=== PATIENT | male | born 2000 | race Two or more races ===

== ENCOUNTER 2020-01-17 16:30 | Inpatient (IN) | payer OTHER ==
[~2020-01-17] VITALS: Ht 170.2 cm; Wt 67.0 kg
[2020-01-17 17:00] LABS: VENOUS BASE EXCESS 0.1 (-2.0-2.0); VENOUS HCO3 26.5 MEQ/L (23.0-27.0); VENOUS O2 SATURATION 67.9 % (60.0-80.0); VENOUS PARTIAL PRESSURE CO2 48.5 mmHg (38.0-50.0); VENOUS PARTIAL PRESSURE O2 36.6 mmHg (30.0-50.0); VENOUS PH 7.355 UNITS (7.330-7.430); VENOUS STANDARD HCO3 23.6 MEQ/L
[2020-01-17] MEDS ORDERED: ACETAMINOPHEN TAB 650MG DOSE (2X325MG) PO ONE (17:00)
[2020-01-17] MEDS ORDERED: dexameTHASONE 20MG/5ML VIAL (J1100 PER 1MG) IV ONE (17:00)
[2020-01-17] MEDS ORDERED: NS 500 ML IV ONE (17:00)
[2020-01-17 17:08] LABS: BASO # 0.1 10^3/uL (0.0-0.2); BASO % 0.3 % (0.0-1.0); EOS # 0.4 10^3/uL (0.0-0.5); HEMATOCRIT 50.5 % (42.0-52.0); HEMOGLOBIN 17.1 g/dl (13.5-17.5); LYMPH # 1.2 10^3/uL (1.5-5.0); LYMPH % 5.3 % (24.0-44.0); MEAN CORPUSCULAR HEMOGLOBIN 28.4 pg (27.0-33.0); MEAN CORPUSCULAR HGB CONC 33.9 g/dl (32.0-36.5); MEAN CORPUSCULAR VOLUME 83.7 fl (80.0-96.0); MONO # 1.3 10^3/uL (0.0-0.8); MONO % 5.6 % (0.0-5.0); NEUTROPHILS # 19.2 10^3/uL (1.5-8.5); NEUTROPHILS % 85.9 % (36.0-66.0); PLATELET COUNT, AUTOMATED 206 10^3/uL (150-450); RED BLOOD COUNT 6.03 10^6/uL (4.30-6.10); WHITE BLOOD COUNT 22.3 10^3/uL (4.0-10.0)
[2020-01-17 17:40] LABS: ALBUMIN 3.9 GM/DL (3.2-5.2); ALT/SGPT 37 U/L (12-78); BILIRUBIN,TOTAL 0.9 MG/DL (0.2-1.0); BLOOD UREA NITROGEN 25 MG/DL (7-18); CALCIUM LEVEL 9.1 MG/DL (8.5-10.1); CARBON DIOXIDE LEVEL 25 MEQ/L (21-32); CHLORIDE LEVEL 100 MEQ/L (98-107); CPK CREATINE PHOSPHOKINASE 410 U/L (39-308); GLUCOSE, FASTING 115 MG/DL (70-100); POTASSIUM SERUM 3.9 MEQ/L (3.5-5.1); SODIUM LEVEL 135 MEQ/L (136-145)
[2020-01-17] MEDS ORDERED: MOM 30ML SUSPENSION UDC PO PRN (20:00)
[2020-01-17] MEDS ORDERED: MAALOX 30 ML SUSP *UDC PO PRN (20:00)
[2020-01-17] MEDS ORDERED: ACETAMINOPHEN TAB 650MG DOSE (2X325MG) PO PRN (20:00)
[2020-01-17] MEDS ORDERED: SODIUM CHLORIDE 0.9% 1000ML IV SCH (20:00)
--- NOTE | 2020-01-17 20:05 | HPEPDOC ---
[facility] Medical History & Physical Date of Admission Jan 17, 2020 Date of Service: Jan 17, 2020 Other Provider [facility] Attending Physician: TIERRA BAER MD History and Physical TIME OF SERVICE: 920PM CHIEF COMPLAINT: not feeling well HISTORY OF PRESENT ILLNESS: This 19 yr old M presented with the chief c/o not feeling well for 3 days. He has had a dry cough, fevers, chills, shortness of breath, 5/10 in severity mid- chest pain that is worse when he coughs and body aches. He denies having n/v/d, runny nose, sore throat or having an sick contacts. As a result of the coughing his voice has become hoarse. He is in the and took a plane trip (via 3 different air crafts) from [place] to [place] about 2 weeks ago. His quaratine period was set to on Jan 17. He admits to not eating much for the last 3 days. REVIEW OF SYSTEMS: 12 point review of systems negative except as listed in HPI PAST MEDICAL/ SURGICAL HISTORY: none SOCIAL HISTORY: + Tobacco ( smokes and Vapes tobacco products, denied vaping other products such as THC /last vapped 1 month ago) - Alcohol - Recreational drugs FAMILY HISTORY: none ALLERGIES: Please see below. HOME MEDICATIONS: Please see below. PHYSICAL EXAMINATION: Vital Signs Date Time Temp Pulse Resp B/P (MAP) Pulse Ox O2 Delivery O2 Flow Rate FiO2 01/17/20 16:44 Nasal Cannula 4.0 01/17/20 16:44 100.2 123 18 129/81 93 GEN: well-nourished / well developed/ NAD INTEGUMENT: slightly flushed & diaphoretic HEENT: O2 sats occasionally dropping as low as 79% during exam despite 4L of O2 via NC / lips acyanotic /mucus membranes moist and pink / sclera anicteric/ NC in place CVS: tachycardic /NMRG/ radial pulses intact / no lower extremity edema LUNGS: able to speak full sentences without stopping to take a breath / coughing frequently / has dry inspiratory crackles at lung bases ABDOMEN: Contour (flat) MSK/EXTREMITIES: NCAT / range of motion intact in all 4 extremities NEURO: CN 2-12 are grossly intact / speech is not dysarthric PSYCH: alert and oriented to person place and time/ able to understand and follow all commands LABORATORY DATA: 01/17/20 16:50 Immature Granulocyte % (Auto) 0.9, Neutrophils (%) (Auto) 85.9H, Lymphocytes (%) (Auto) 5.3L, Monocytes (%) (Auto) 5.6H, Eosinophils (%) (Auto) 2.0, Basophils ( %) (Auto) 0.3, Neutrophils # (Auto) 19.2H, Lymphocytes # (Auto) 1.2L, Monocytes # (Auto) 1.3H, Eosinophils # (Auto) 0.4, Basophils # (Auto) 0.1, Nucleated Red Blood Cells % (auto) 0.0, Blood Gas Bicarbonate Standard 23.6, Venous Blood pH 7.355, Venous Blood Partial Pressure CO2 48.5, Venous Blood Partial Pressure O2 36.6, Venous Blood Total Carbon Dioxide 28.0, Venous Blood HCO3 26.5, Venous Blood Oxygen Saturation 67.9, Venous Blood Base Excess 0.1, Anion Gap 10, Lactic Acid Level 3.0*H, Calcium Level 9.1, Total Bilirubin 0.9, Aspartate Amino Transf (AST/SGOT) 16, Alanine Aminotransferase (ALT/SGPT) 37, Alkaline Phosphatase 81, Total Creatine Kinase 410H, Total Protein 8.0, Albumin 3.9, Albumin/Globulin Ratio 1.0 IMAGING: Chest xray (based on personal visualization): bilateral patchy hazy opacities that are more prominent and confluent on the right side of the lung MICROBIOLOGY: Respiratory panel: Blood cx pending.... NEGATIVE by MULTIPLEXED NUCLEIC ACID PCR RESPIRATORY PANEL Final SARS-CoV-2 (COVID 19) NEGATIVE - SARS-CoV-2 (COVID19) This respiratory PCR panel detects Influenza A H1, H3 and 2009 H1 viruses, Influenza B virus, Respiratory Syncytial Virus, Human metapneumovirus, Parainfluenza virus 1, 2, 3 and 4, Adenovirus, Rhinovirus/Enterovirus, Coronavi ariel HKU1, NL63, OC43, 229E and SARS-CoV-2 (COVID 19), Bordetella pertussis, Bordetella parapertussis, Mycoplasma pneumoniae and Chlamydia pneumoniae. ASSESSMENT: is a 19 yr old in the w a hx of vaping who travelled to [place] from [place] about 13 days ago; he presented w c/o of f/c, chest pain associated w coughing and myalgias and was found to have hypoxia & bilateral infiltrates despite a neg respiratory panel and COVID x2; he will be admitted for management of hypoxia and evaluation of sepsis, atypical PNA vs EVALI and HOWARD. PLAN: 1. Reactive SIRS vs Sepsis 2/2 atypical PNA ? -SIRS criteria: HR =125 / WBC =22.3 - his CRP elevated, he has non diabetic hyperglycemia and the lactic acid = 3 -NEW2S Score = 7 points = high risk Plan: admit to medical floor / telemetry / Sepsis protocol w repeat lactic / start IV Doxcyclin for atypical PNA (no azithro bc of high resistance rates in the community) / c/w IV /f/u blood cx & sputum Cx / Acetaminophen PRN for fever / target MAP at of least 65 to 70 / f/u Is and Os with target UOP of at least 0.5 ml/kg/H 2. Hypoxia and Bilateral Infiltrates Possibly 2/2 atypical PNA vs EVALI (e-cigarette or vaping associated lung injury which can also present w PNA like symptoms including constitutional symptoms) vs Organizing PNA vs Lipoid PNA vs Hypersensitivity Pneumonitis -During the exam he had hypoxia with drop in O2 sats as low as 79% despite use of 4L of supplemental O2 -COVID tests included with the respiratory panel and PCR were negative Plan: continuous pulse ox & supplemental O2/ f/u HIV, sputum cx, MRSA< strep pneumo, legionella, mycoplasma PNA, Chlamydia PNA & blood cx / Tessalon pearls / Acetaminophen PRN for fever / if his hypoxia persists and the work-up is neg, the day time team may consider HRCT of the chest + Pulm consult for BAL 3. Lactic Acidosis 2/2 dehydration and or infection Plan: trend lactic acid / IVF 4. HOWARD Likely pre-renal due to poor PO intake Cr 1.50 BUN 25 Plan: IVF / f/u ulytes for FENa & renal US 5. Mild Rhabdomyolysis -CPK 410 -[facility] Rhabdomyolysis Risk Score to predict the risk of severe HOWARD or mortality in patients with rhabdomyolysis = 1.5 points = low risk Plan: IVF / f/u drug screen / trend CPK DVT PROPHYLAXIS: SCDs DISPOSITION: home after more than 2 midnight's stay Home Medications No Active Prescriptions or Reported Meds Allergies Coded Allergies: No Known Allergies (Unverified , 01/17/20) A-FIB/CHADSVASC A-FIB History Current/History of A-Fib/PAF?: No Current PO Anticoag Therapy: No TIERRA BAER MD Jan 17, 2020 20:05
[2020-01-17 20:29] LABS: FERRITIN 214 NG/ML (26-388)
[2020-01-17 20:40] LABS: ERYTHROCYTE SEDIMENTATION RATE 22 mm/hr (0-15)
[2020-01-17 20:51] LABS: MAGNESIUM LEVEL 1.9 MG/DL (1.4-2.0)
[2020-01-17] MEDS: NS 1,000 ML IV SCH (22:23)
--- NOTE | 2020-01-17 22:57 | REPVR ---
PROCEDURE INFORMATION: Exam: US Retroperitoneal Limited, Kidneys Exam date and time: 01/17/2020 10:17 PM Age: 19 years old Clinical indication: Abnormal findings; Abnormal lab test; Abnormal kidney function lab tests; Additional info: Brennan TECHNIQUE: Imaging protocol: Real-time ultrasound of the retroperitoneum with image documentation. Examination was focused on the kidneys. COMPARISON: No relevant prior studies available. FINDINGS: Right kidney: The right kidney measures 11.5 cm in length by 4.2 cm in thickness and there is no hydronephrosis. There is mild increased echogenicity of the right and left renal cortex which can be seen with renal insufficiency. Left kidney: The left kidney measures 11.3 cm in length by 4.9 cm in thickness and there is no evidence of hydronephrosis. Bladder: Normal appearing urinary bladder. IMPRESSION: 1. No evidence of hydronephrosis. 2. Mild increased echogenicity of the renal cortex bilaterally. Electronically signed by: Torres Osuna On 01/17/2020 22:57:31 PM
[2020-01-18 00:37] VITALS: BP 118/73
[2020-01-18] MEDS: NS 1,000 ML IV SCH ×3 (01:23→22:16)
[2020-01-18 01:44] LABS: PHOSPHORUS LEVEL 3.5 MG/DL (2.5-4.9)
[2020-01-18] MEDS ORDERED: DOXYCYCLINE HYCLATE 100 MG in D5W MINI-BAG PLUS 100 ML IV SCH (02:00)
[2020-01-18 06:00] VITALS: BP 132/74
[2020-01-18 07:20] LABS: HEMATOCRIT 46.1 % (42.0-52.0); HEMOGLOBIN 15.5 g/dl (13.5-17.5); MEAN CORPUSCULAR HEMOGLOBIN 28.9 pg (27.0-33.0); MEAN CORPUSCULAR HGB CONC 33.6 g/dl (32.0-36.5); PLATELET COUNT, AUTOMATED 213 10^3/uL (150-450); RED BLOOD COUNT 5.36 10^6/uL (4.30-6.10); WHITE BLOOD COUNT 12.6 10^3/uL (4.0-10.0)
[2020-01-18 07:36] LABS: BLOOD UREA NITROGEN 24 MG/DL (7-18); CALCIUM LEVEL 8.8 MG/DL (8.5-10.1); CARBON DIOXIDE LEVEL 26 MEQ/L (21-32); CHLORIDE LEVEL 106 MEQ/L (98-107); CPK CREATINE PHOSPHOKINASE 298 U/L (39-308); CREATININE FOR GFR 1.13 MG/DL (0.70-1.30); GLUCOSE, FASTING 130 MG/DL (70-100); POTASSIUM SERUM 4.6 MEQ/L (3.5-5.1); SODIUM LEVEL 138 MEQ/L (136-145)
[2020-01-18 08:25] LABS: AMPHETAMINES LEVEL URINE NEGATIVE (NEGATIVE); BARBITURATES URINE NEGATIVE (NEGATIVE); BENZODIAZEPINES URINE NEGATIVE (NEGATIVE); CANNABINOIDS URINE NEGATIVE (NEGATIVE); COCAINE METABOLITE URINE NEGATIVE (NEGATIVE); METHADONE URINE NEGATIVE (NEGATIVE); OPIATES URINE NEGATIVE (NEGATIVE); PHENCYCLIDINE URINE NEGATIVE (NEGATIVE); TOTAL PROTEIN,RANDOM URINE 145.3 MG/DL (0.0-12.0)
[2020-01-18 08:56] LABS: OSMOLALITY URINE 913 MOSM/KG (500-800)
[2020-01-18] MEDS: ENOXAPARIN 40MG/0.4ML SYRINGE (J1650 PER 10MG) SC SCH (09:23)
[2020-01-18 09:30] VITALS: O2SAT 95
[2020-01-18 09:40] LABS: HIV 1&2 SCREEN CENTAUR NEGATIVE (NEGATIVE)
--- NOTE | 2020-01-18 13:52 | IPNPDOC ---
Text Note Date of Service The patient was seen on 01/18/20. NOTE Patient was seen and examined this morning. He is awake on 2 L of nasal cannula saturating around 94. He has been having dry cough while I was standing in the room. He has mild hoarseness of voice as well. He states that he has been improving. Physical examination GEN: well-nourished / well developed/ NAD HEENT: Nasal cannula in place. No icterus, no pallor. CVS: Mildly tachycardic. S1, S2 heard. No murmurs, no gallops. LUNGS: Able to speak in full sentences. No rhonchi, no rales. Mild expiratory wheezing. ABDOMEN: Nondistended. No rebound, no guarding MSK/EXTREMITIES: NCAT / range of motion intact in all 4 extremities NEURO: CN 2-12 are grossly intact / speech is not dysarthric Radiology reviewed Labs reviewed: The patient has a pro-Samuel 4.6. Microbiology. The patient has been code 19, negative. All the atypical pneumonia workup along with blood cultures have been sent. Assessment and plan is a 19 yr old in the w a hx of vaping who travelled to [place] from [place] about 13 days ago; he presented w c/o of f/c, chest pain associated w coughing and myalgias and was found to have hypoxia & bilateral infiltrates despite a neg respiratory panel and COVID x2; he will be admitted for management of hypoxia and evaluation of sepsis, atypical PNA vs EVALI and HOWARD. 1. Sepsis 2/2 atypical bacterial PNA versus viral pneumonia : The patient has a pro-Samuel alleviated and was having leukocytosis with tachycardia. Has been started on IV assist control as well as IV Rocephin. Blood cultures, sputum cultures and atypical workup has been admitted. Code 19, has been negative. We will continue to supplement oxygen to maintain the saturation about 92. 2. Hypoxia and Bilateral Infiltrates: Possibly 2/2 atypical PNA vs EVALI : Continuous pulse ox and supplemental oxygen to maintain saturation about 92. Possible taping-induced lung injury. The patient has been started on IV Solu- Medrol 40 mg daily at this time. We will continue to monitor. A CT scan of the chest also be ordered to have a better understanding of the pulmonary pathology. 3. Lactic Acidosis: Likely secondary to hypoxia. Currently, lactic acid has been normalized. 4. HOWARD: Likely prerenal because of poor oral intake. The patient has been getting IV fluids and currently the renal function has been getting better. The patient has a good urine output. We should also had a mildly elevated CPK of 410. Continue to trend CPK. Mild gentle hydration. DVT PROPHYLAXIS: SCDs Disposition likely home in the next 24-48 hours. VS,Fishbone, I+O VS, Fishbone, I+O Laboratory Tests 01/17/20 16:50 01/18/20 06:54 Vital Signs Date Time Temp Pulse Resp B/P (MAP) Pulse Ox O2 Delivery O2 Flow Rate FiO2 01/18/20 09:30 4.0 01/18/20 09:30 95 Nasal Cannula 01/18/20 06:00 97.6 98 17 132/74 (93) I&O- Last 24 Hours up to 6 AM 01/18/20 05:59 Intake Total 1000 ml Balance 1000 ml LORE TONY MD Jan 18, 2020 13:52
[2020-01-18] MEDS: cefTRIAXone SOD 1 GM in D5W MINI-BAG PLUS 50 ML IV SCH (15:51)
[2020-01-18] MEDS: methylPREDNISolone 40MG 1ML VIAL IV SCH (15:51)
[2020-01-18] MEDS: AZITHROMYCIN INJ 500 MG, VIAL MATE ADAPTER 1 EACH in D5W 250 ML IV SCH (16:46)
[2020-01-18 22:00] VITALS: BP 124/76
[2020-01-19] VITALS (9 sets, daily range): BP systolic 114–132; BP diastolic 56–78; O2SAT 94–97
[2020-01-19] MEDS: BENZONATATE 100 MG CAP PO PRN (02:03)
--- NOTE | 2020-01-19 05:51 | REP ---
INDICATION: Pna COMPARISON: None TECHNIQUE: Axial noncontrast images from the thoracic inlet to the upper abdomen with coronal and sagittal reformations. This CT examination was performed using the following dose reduction techniques: Automated exposure control, adjustment of mA and/or kv according to the patient's size, and use of iterative reconstruction technique. FINDINGS: Lung oakes demonstrate diffuse bilateral alveolar infiltrates (right greater than left) with confluent areas of consolidation in the bilateral lower lobes, small pleural effusions, and suspected mild adenopathy. Findings are nonspecific in appearance. No pneumothorax. Further evaluation of the mediastinum demonstrates normal thoracic aorta, pulmonary vasculature, and heart/pericardium. Musculoskeletal structures are intact and normal. IMPRESSION: Nonspecific multifocal pneumonia with small pleural effusions. <Electronically signed by Hira Schultz > 01/19/20 0558
[2020-01-19] MEDS: NS 1,000 ML IV SCH ×2 (06:24→15:44)
[2020-01-19] MEDS: ENOXAPARIN 40MG/0.4ML SYRINGE (J1650 PER 10MG) SC SCH (08:59)
--- NOTE | 2020-01-19 13:47 | IPNPDOC ---
Text Note Date of Service The patient was seen on 01/19/20. NOTE Patient was seen and examined this morning. He is awake on 2 L of nasal cannula saturating around 94. He has been having dry . He states that he has been improving. Physical examination GEN: well-nourished / well developed/ NAD HEENT: Nasal cannula in place. No icterus, no pallor. CVS: Mildly tachycardic. S1, S2 heard. No murmurs, no gallops. LUNGS: Able to speak in full sentences. No rhonchi, no rales. Mild expiratory wheezing. ABDOMEN: Nondistended. No rebound, no guarding MSK/EXTREMITIES: NCAT / range of motion intact in all 4 extremities NEURO: CN 2-12 are grossly intact / speech is not dysarthric Radiology reviewed Labs reviewed: The patient has a pro-Samuel 4.6. Microbiology. The patient has been code 19, negative. All the atypical pneumonia workup along with blood cultures have been sent. Assessment and plan is a 19 yr old in the w a hx of vaping who travelled to [place] from [place] about 13 days ago; he presented w c/o of f/c, chest pain associated w coughing and myalgias and was found to have hypoxia & bilateral infiltrates despite a neg respiratory panel and COVID x2; he will be admitted for management of hypoxia and evaluation of sepsis, atypical PNA vs EVALI and HOWARD. 1. Sepsis 2/2 atypical bacterial PNA versus viral pneumonia : The patient has a pro-Samuel alleviated and was having leukocytosis with tachycardia. Has been started on IV azithro well as IV Rocephin. Blood cultures, sputum cultures and atypical workup has been admitted. Code 19, has been negative. We will continue to supplement oxygen to maintain the saturation about 92. 2. Hypoxia and Bilateral Infiltrates: Possibly 2/2 atypical PNA vs EVALI : Continuous pulse ox and supplemental oxygen to maintain saturation about 92. Possible taping-induced lung injury. The patient has been started on IV Solu- Medrol 40 mg daily at this time. We will continue to monitor. A CT scan of the chest also be ordered to have a better understanding of the pulmonary pathology was done which shows b/l interstetial PNA. 3. Lactic Acidosis: Likely secondary to hypoxia. Currently, lactic acid has been normalized. 4. HOWARD: Resolved. Likely prerenal because of poor oral intake. The patient has been getting IV fluids and currently the renal function has been getting better. The patient has a good urine output. We should also had a mildly elevated CPK of 410. Continue to trend CPK. Mild gentle hydration. DVT PROPHYLAXIS: SCDs Disposition likely home in the next 24-48 hours. VS,Fishbone, I+O VS, Fishbone, I+O Vital Signs Date Time Temp Pulse Resp B/P (MAP) Pulse Ox O2 Delivery O2 Flow Rate FiO2 01/19/20 11:50 97 Nasal Cannula 2.0 01/19/20 10:00 97.8 101 16 114/65 (81) I&O- Last 24 Hours up to 6 AM 01/19/20 06:00 Intake Total 4125 ml Balance 4125 ml LORE TONY MD Jan 19, 2020 13:47
[2020-01-19] MEDS: cefTRIAXone SOD 1 GM in D5W MINI-BAG PLUS 50 ML IV SCH (15:21)
[2020-01-19] MEDS: methylPREDNISolone 40MG 1ML VIAL IV SCH (15:21)
[2020-01-19] MEDS: AZITHROMYCIN INJ 500 MG, VIAL MATE ADAPTER 1 EACH in D5W 250 ML IV SCH (16:30)
[2020-01-20] MEDS: NS 1,000 ML IV SCH ×2 (00:17→08:17)
[2020-01-20] MEDS: BENZONATATE 100 MG CAP PO PRN (00:17)
[2020-01-20 02:00] VITALS: BP_SYST 112; BP_DIAS 68; BP_DIAS 8
[2020-01-20 06:00] VITALS: BP 111/72
[2020-01-20 07:08] LABS: HEMATOCRIT 37.7 % (42.0-52.0); MEAN CORPUSCULAR HEMOGLOBIN 28.6 pg (27.0-33.0); MEAN CORPUSCULAR HGB CONC 32.4 g/dl (32.0-36.5); MEAN CORPUSCULAR VOLUME 88.5 fl (80.0-96.0); PLATELET COUNT, AUTOMATED 204 10^3/uL (150-450); RED BLOOD COUNT 4.26 10^6/uL (4.30-6.10); WHITE BLOOD COUNT 11.1 10^3/uL (4.0-10.0)
[2020-01-20 07:13] LABS: HEMOGLOBIN 12.2 g/dl (13.5-17.5)
[2020-01-20] MEDS: ENOXAPARIN 40MG/0.4ML SYRINGE (J1650 PER 10MG) SC SCH (08:17)
[2020-01-20 08:45] VITALS: O2SAT 93
[2020-01-20 10:00] VITALS: BP 115/71
[2020-01-20] MEDS ORDERED: AUGM875T28 PO (11:50)
[2020-01-20] MEDS ORDERED: PRED20TA PO (11:51)
[2020-01-20] MEDS ORDERED: VENTAER INH (11:52)
[2020-01-20 12:06] LABS: BASO # 0.1 10^3/uL (0.0-0.2); BASO % 0.6 % (0.0-1.0); EOS # 1.5 10^3/uL (0.0-0.5); EOS % 12.7 % (0.0-3.0); HEMATOCRIT 38.9 % (42.0-52.0); HEMOGLOBIN 12.8 g/dl (13.5-17.5); LYMPH # 3.1 10^3/uL (1.5-5.0); MEAN CORPUSCULAR HEMOGLOBIN 28.5 pg (27.0-33.0); MEAN CORPUSCULAR HGB CONC 32.9 g/dl (32.0-36.5); MEAN CORPUSCULAR VOLUME 86.6 fl (80.0-96.0); MONO # 0.8 10^3/uL (0.0-0.8); MONO % 6.8 % (0.0-5.0); NEUTROPHILS # 5.8 10^3/uL (1.5-8.5); NEUTROPHILS % 50.8 % (36.0-66.0); PLATELET COUNT, AUTOMATED 225 10^3/uL (150-450); RED BLOOD COUNT 4.49 10^6/uL (4.30-6.10); WHITE BLOOD COUNT 11.4 10^3/uL (4.0-10.0)
[2020-01-20 12:40] LABS: BLOOD UREA NITROGEN 14 MG/DL (7-18); CALCIUM LEVEL 8.2 MG/DL (8.5-10.1); CARBON DIOXIDE LEVEL 26 MEQ/L (21-32); CHLORIDE LEVEL 111 MEQ/L (98-107); CREATININE FOR GFR 0.79 MG/DL (0.70-1.30); GLUCOSE, FASTING 115 MG/DL (70-100); POTASSIUM SERUM 3.6 MEQ/L (3.5-5.1); SODIUM LEVEL 144 MEQ/L (136-145)
--- NOTE | 2020-01-20 12:46 | DS.PDOC ---
Discharge Summary General Date of Admission Jan 17, 2020 at 19:54 Date of Discharge 01/20/20 Discharge Summary is a 19 yr old in the w a hx of vaping who travelled to [place] from [place] about 13 days ago; he presented w c/o of f/c, chest pain associated w coughing and myalgias and was found to have hypoxia & bilateral infiltrates despite a neg respiratory panel and COVID x2; he will be admitted for management of hypoxia and evaluation of sepsis, atypical PNA vs EVALI and HOWARD.. He was given IV fluids and he maintained good urine output. His renal function subsided and came down to the normal level. Toxic or the skin was done which came out to be negative. AK I was most likely prerenal because of dehydration. He also had lactic acidosis on his admission, which also subsided after IV hydration. The main differential. He had were Sepsis 2/2 atypical bacterial PNA versus viral pneumonia . Cultures were done which came out to be negative. Atypical workup was started and the patient was started on IV azithromycin and IV Rocephin. The patient continued to improve and currently is on room air and saturating 94. His cough also has been getting better. For his Hypoxia and Bilateral Infiltrates: Possibly 2/2 atypical PNA vs EVALI : CT scan of the chest was also done which shows bilateral interstitial pneumonias. He was treated medically with antibiotics and his pro-Samuel was also elevated, so the pneumonia was thought to be bacterial. He'll be continued on 4 more days of Aug mentin on discharge and has been advised to follow with pulmonary as well as PCP in 2 weeks. He has been given 20 of prednisone for the next 5 days along with albuterol inhaler as well as Augmentin. He has been advised to avoid weightbearing as well as smoking. He has been advised to have a close follow-up with pulmonary to see if there is any other thing which needs to be done. Stands. I have already given all the information to the mother as well after taking his permission. He is medically stable for discharge and is eager to go home today. Physical examination GEN: well-nourished / well developed/ NAD HEENT: Nasal cannula in place. No icterus, no pallor. CVS: Mildly tachycardic. S1, S2 heard. No murmurs, no gallops. LUNGS: Able to speak in full sentences. No rhonchi, no rales. Mild expiratory wheezing. ABDOMEN: Nondistended. No rebound, no guarding MSK/EXTREMITIES: NCAT / range of motion intact in all 4 extremities NEURO: CN 2-12 are grossly intact / speech is not dysarthric Medications. As per discharge reconciliation medication list, albuterol, Augmentin for 4 days and prednisone 20 for 5 days Activity as tolerated Diet. Regular diet Follow-up appointments. PCP in 1 week. Pulmonary in 2 weeks Condition on discharge. Patient is medically optimized for discharge Discharge disposition: Home Total time spent on this discharge including coordination of care, review of chart documentation and actual patient contact is around 35 minutes Vital Signs/I&Os Vital Signs Date Time Temp Pulse Resp B/P (MAP) Pulse Ox O2 Delivery O2 Flow Rate FiO2 01/20/20 10:00 97.8 87 18 115/71 (86) 93 Room Air 01/19/20 18:00 1.0 I&O- Last 24 Hours up to 6 AM 01/20/20 06:00 Intake Total 2815 ml Output Total 0 ml Balance 2815 ml Laboratory Data Labs 24H Laboratory Tests 2 01/20/20 06:31: Nucleated Red Blood Cells % (auto) 0.0 01/20/20 11:21: Nucleated Red Blood Cells % (auto) 0.0, Immature Granulocyte % (Auto) 2.1, Neutrophils (%) (Auto) 50.8, Lymphocytes (%) (Auto) 27.0, Monocytes (%) (Auto) 6.8H, Eosinophils (%) (Auto) 12.7H, Basophils (%) (Auto) 0.6, Neutrophils # (Auto) 5.8, Lymphocytes # (Auto) 3.1, Monocytes # (Auto) 0.8, Eosinophils # (Auto) 1.5H, Basophils # (Auto) 0.1, Anion Gap 7L, Calcium Level 8.2L CBC/BMP Laboratory Tests 01/20/20 06:31 01/20/20 11:21 Microbiology Microbiology 01/17/20 Blood Culture - Preliminary, Resulted No Growth after 48 hours. All Specime... 01/17/20 Respiratory Virus Panel (PCR) ([facility]) - Final, Complete Discharge Medications Scheduled Amoxicillin/Potassium Clav (Augmentin 875-125 Tablet) 1 Each Tablet, 875 MG PO BID Prednisone (Prednisone) 20 Mg Tablet, 20 MG PO DAILY Scheduled PRN Albuterol Sulfate (Ventolin Hfa) 18 Gm Hfa.aer.ad, 2 PUFF INH Q4-6HP PRN for wheezing Allergies Coded Allergies: No Known Allergies (Unverified , 01/17/20) LORE TONY MD Jan 20, 2020 12:46
[2020-01-20 17:08] LABS: CHLAMYDIA PNEUMONIAE IgG 1:16 (Neg:<1:16); CHLAMYDIA PNEUMONIAE IgM <1:10 (Neg:<1:10); MYCOPLASMA PNEUMONIAE IgG 297 U/mL (0-99); MYCOPLASMA PNEUMONIAE IgM <770 U/mL (0-769)
== END 2020-01-20 13:46 | disposition home or self-care (01) | DRG 871 ==
LOC: M ED 16:30 → M ED INP 19:54 → ENRESERV 01-18 00:13 → M MSPAV 01-18 00:37
PROVIDERS: ADMIT Internal Medicine; ATTEND Internal Medicine
DX: A41.9 Sepsis, unspecified organism (principal); J15.9 Unspecified bacterial pneumonia; E87.2 Acidosis; N17.9 Acute kidney failure, unspecified; M62.82 Rhabdomyolysis; J84.9 Interstitial pulmonary disease, unspecified; F17.290 Nicotine dependence, other tobacco product, uncomplicated; R73.9 Hyperglycemia, unspecified; R09.02 Hypoxemia; Z20.828 Contact with and (suspected) exposure to other viral communicable diseases